=== PATIENT | male | born 1990 | race Caucasian/White ===

== ENCOUNTER 2019-09-17 12:10 | Emergency (ER) | payer MEDICAID ==
[~2019-09-17] VITALS: Ht 193 cm; Wt 99.8 kg
[2019-09-17 12:51] VITALS: BP_SYST 167
[2019-09-17] MEDS ORDERED: HYDROcodone/ACETAMIN 5-325 MG TAB (NORCO/ VICODIN) PO ONE (14:15)
[2019-09-17] MEDS ORDERED: IBUPROFEN 800 MG TABLET PO ONE (14:30)
[2019-09-17 15:01] VITALS: BP_SYST 142
== END 2019-09-17 15:01 | disposition home or self-care (01) ==
LOC: SED 12:10
DX: S62.326A Displaced fracture of shaft of fifth metacarpal bone, right hand, initial encounter for closed fracture (principal); S60.511A Abrasion of right hand, initial encounter; L03.113 Cellulitis of right upper limb; R03.0 Elevated blood-pressure reading, without diagnosis of hypertension; W21.11XA Struck by baseball bat, initial encounter; Y93.89 Activity, other specified; Y92.89 Other specified places as the place of occurrence of the external cause; Y99.8 Other external cause status
CPT/HCPCS: 99283